=== PATIENT | male | born 1995 | race Caucasian/White ===

== ENCOUNTER 2017-12-06 18:43 | Emergency (ER) | payer SELFPAY ==
[2017-12-06] MEDS ORDERED: Nystatin 500,000 UNITS/5 ML UDCUP ONE (19:25)
[2017-12-06] MEDS ORDERED: Lidocaine Viscous Sol 2% 15 ml UD Cup ONE (19:25)
[2017-12-06] MEDS ORDERED: Ibuprofen 800 MG TAB ONE (19:27)
== END 2017-12-06 19:56 | disposition home or self-care (01) ==
LOC: SCSER 18:43
DX: S00.511A Abrasion of lip, initial encounter (principal); K13.79 Other lesions of oral mucosa; F32.9 Major depressive disorder, single episode, unspecified; W50.3XXA Accidental bite by another person, initial encounter
CPT/HCPCS: 87081; 87255; 87430; 99283